=== PATIENT | male | born 1990 | race Two or more races ===

== ENCOUNTER 2016-09-22 13:58 | Emergency (ER) | payer OTHER ==
--- NOTE | 2016-09-22 14:09 | CPEKG ---
Heart Rate: 89 RR Interval: 674 P-R Interval: 160 QRSD Interval: 84 QT Interval: 360 QTC Interval: 439 P [place]: 31 QRS [place]: 11 T Wave [place]: 28 EKG Severity - NORMAL ECG - EKG Impression: SINUS RHYTHM Electronically Signed By: Isak Guzman 22-Sep-2016 15:37:55
[2016-09-22 14:44] LABS: % IMMATURE GRANULYOCYTES 0.4 % (0.0-1.1); ABSOLUTE IMMATURE GRANULOCYTES 0.03 10^3/uL (0.00-0.10); ADD DIFF? NO; ADD MORPH? NO; ADD SCAN? NO; ATYPICAL LYMPHOCYTE FLAG 10 (0-99); FRAGMENT RBC FLAG 0 (0-99); HEMATOCRIT 45.4 % (40.0-51.0); HEMOGLOBIN 15.8 g/dL (13.7-17.5); LEFT SHIFT FLG 0 (0-99); LIPEMIA HEMOLYSIS FLAG 90 (0-99); MEAN CELL HEMOGLOBIN 30.4 pg (27.9-34.1); MEAN CELL HEMOGLOBIN CONCENTR. 34.8 g/dL (32.4-36.7); MEAN CELL VOLUME 87.3 fL (81.5-99.8); MEAN PLATELET VOLUME 12.8 fL (8.7-11.7); PLATELET CLUMPS FLAG 0 (0-99); PLATELET COUNT 195 10^3/uL (150-400); RED CELL DISTRIBUTION WIDTH 12.9 % (11.5-15.2)
[2016-09-22 14:47] LABS: ANION GAP 13 mEq/L (8-16); CALCIUM 10.3 mg/dL (8.5-10.4); CARBON DIOXIDE 23 mEq/l (22-31); CHLORIDE 100 mEq/L (97-110); GLOMERULAR FILTRATION RATE > 60; GLUCOSE 139 mg/dL (70-100); POTASSIUM 3.7 mEq/L (3.5-5.2); SODIUM 136 mEq/L (134-144)
[2016-09-22 14:59] LABS: TROPONIN I < 0.012 ng/mL (0-0.034)
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
[2016-09-22 16:09] VITALS: BP 123/68; PULSE 70; RESP 14; TEMP 98.4; O2SAT 94
== END 2016-09-22 16:08 | disposition home or self-care (01) ==
DX: R00.2 Palpitations (principal)

== ENCOUNTER 2017-01-03 18:34 | Emergency (ER) | payer OTHER ==
--- NOTE | 2017-01-03 19:01 | EDPHY ---
H & P Stated Complaint: "panic attack" x 45 mins '"lasting longer than usual" HPI/ROS: HPI CHIEF COMPLAINT: Acute anxiety, panic attacks HISTORY OF PRESENT ILLNESS: This patient is a 26-year-old male, otherwise healthy significant past medical history for anxiety and panic attacks. He presents emergency room by private vehicle after he had a panic attack. States that he was lying in bed all the sudden he felt anxious. Started hyperventilate. Numbness and tingling around his mouth numbness and tingling in his hands and feet. Hyperventilation present. States that it normally lasts much shorter in this however this one lasted longer. Began having palpitations. Past Medical History: Acute anxiety panic attacks Past Surgical History: No recent surgery Social History: Denies daily use of drugs alcohol tobacco products. Works [employer]. Family History: Noncontributory ROS REVIEW OF SYSTEMS: A comprehensive 10 point review of systems is otherwise negative aside from elements mentioned in the history of present illness. Exam Constitutional appears well nontoxic, triage nursing summary reviewed, vital signs reviewed, awake/alert. Eyes normal conjunctivae and sclera, EOMI, PERRLA. HENT normal inspection, atraumatic, moist mucus membranes, no epistaxis, neck supple/ no meningismus, no raccoon eyes. Respiratory clear to auscultation bilaterally, normal breath sounds, no respiratory distress, no wheezing. Cardiovascular rate normal, regular rhythm, no murmur, no edema, distal pulses normal. Gastrointestinal soft, non-tender, no rebound, no guarding, normal bowel sounds, no distension, no pulsatile mass. Genitourinary no CVA tenderness. Musculoskeletal no midline vertebral tenderness, full range of motion, no calf swelling, no tenderness of extremities, no meningismus, good pulses, neurovascularly intact. Skin pink, warm, & dry, no rash, skin atraumatic. Neurologic awake, alert and oriented x 3, AAOx3, moves all 4 extremities equally, motor intact, sensory intact, CN II-XII intact, normal cerebellar, normal vision, normal speech. Psychiatric normal mood/affect. Heme/Lymph/Immune no lymphadenopathy. Differential Diagnosis: Includes but is not limited to in a particular order acute anxiety, panic attack, cardiac arrhythmia Medical Decision Making: Plan for this patient 1 mg p.o. Ativan, EKG. Re- evaluate. Re-evaluation: EKG interpretation by me on record in [facility] system. Impression time of EKG 1917, this is sinus rhythm rate of 74. No prolonged intervals. No signs of ischemia. No signs of cardiac arrhythmia. Unremarkable EKG. Reason for EKG palpitations. 1935: Re-examination at this time patient is resting comfortably no acute distress. States he feels much better after 1 mg p.o. Ativan. Vital signs are stable. EKG unremarkable for cardiac arrhythmia. He would like to go home. Recommend following up with his primary care doctor. Return to the ER if there is worsening symptoms questions or concerns. Source: Patient - Personal History Current Tetanus/Diphtheria Vaccine: Unsure Current Tetanus Diphtheria and Acellular Pertussis (TDAP): Unsure - Medical/Surgical History Hx Asthma: No Hx Chronic Respiratory Disease: No Hx Diabetes: No Hx Cardiac Disease: No Hx Renal Disease: No Hx Cirrhosis: No Hx Alcoholism: No Hx HIV/AIDS: No Hx Splenectomy or Spleen Trauma: No Other PMH: anxiety. cardiac stress test "normal" 11/18 [facility] - Social History Smoking Status: Never smoked Constitutional: Initial Vital Signs Temperature (C) 36.5 C 01/03/17 18:40 Heart Rate 89 01/03/17 18:40 Respiratory Rate 20 01/03/17 18:40 Blood Pressure 133/94 H 01/03/17 18:40 O2 Sat (%) 99 01/03/17 18:40 O2 Delivery Mode Room Air Allergies/Adverse Reactions: No Known Allergies Allergy (Unverified 09/22/16 14:12) Home Medications: Medication Instructions Recorded Sertraline HCl 01/03/17 Medical Decision Making - Data Points Medications Given: Discontinued Medications Lorazepam (Ativan) 1 mg PO ONCE ONE Stop: 01/03/17 19:05 Last Admin: 01/03/17 19:10 Dose: 1 mg Departure - Departure Disposition: Home, Routine, Self-Care Clinical Impression: Panic attack Condition: Good Instructions: Anxiety (ED), Panic Attack (ED) Additional Instructions: 1. Return emergency room if develops worsening symptoms. Referrals: Lana Vo RN, [employer] ENGINEER [Primary Care Provider] - As per Instructions
[2017-01-03] MEDS ORDERED: LORazepam 1 MG TAB PO ONE (19:04)
--- NOTE | 2017-01-03 19:20 | CPEKG ---
Heart Rate: 74 RR Interval: 811 P-R Interval: 164 QRSD Interval: 78 QT Interval: 380 QTC Interval: 422 P [place]: 14 QRS [place]: 3 T Wave [place]: 14 EKG Severity - NORMAL ECG - EKG Impression: SINUS RHYTHM Electronically Signed By: Ioana Carrasco 03-Jan-2017 19:45:24
[2017-01-03 19:41] VITALS: BP 125/79; PULSE 68; RESP 18; TEMP 98.1; O2SAT 93
== END 2017-01-03 19:42 | disposition home or self-care (01) ==
DX: F41.0 Panic disorder [episodic paroxysmal anxiety] (principal)

== ENCOUNTER 2017-08-27 09:26 | Emergency (ER) | payer OTHER ==
--- NOTE | 2017-08-27 09:57 | EDPHY ---
H & P Stated Complaint: upper abd pain/tenderness x 4 days Time Seen by Provider: 08/27/17 09:49 HPI/ROS: CHIEF COMPLAINT: Epigastric and right upper quadrant pain x4 days HISTORY OF PRESENT ILLNESS: 26-year-old male generally healthy in the ER complaining of 4 days of right upper quadrant and epigastric discomfort. Tends to occur regardless of what he eats whether it is low-fat or not. Does occur primarily postprandially. He went to Urgent Care was referred to the ER for evaluationThis morning. Denies: Back or flank pain, radiation of pain, nausea, vomiting, abnormal bowel movement, melena, hematochezia, fever, chills, trauma, testicular pain, urinary abnormality, cough or flu-like symptoms, dyspnea, URI symptoms. PRIMARY CARE PROVIDER: REVIEW OF SYSTEMS: A ten point review of systems was performed and is negative with the exception of the items mentioned in the HPI PAST MEDICAL & SURGICAL HISTORY: No pertinent medical or surgical history SOCIAL HISTORY: Nonsmoker. No alcohol use. Works as [employer]. PHYSICAL EXAM (Prior to examination, patient consented to physical exam, hands were washed and my usual and customary physical exam procedures followed) 1) GENERAL: Well-developed, well-nourished, alert and oriented. Appears to be in no acute distress. 2) HEAD: Normocephalic, atraumatic 3) HEENT: Pupils equal, round, reactive to light bilaterally. Sclera anicteric. [Nasopharynx, oropharynx, clear, no lesions. Moist mucous membranes 4) NECK: Full range of motion, no meningeal signs. 5) LUNGS: Clear auscultation bilaterally, no wheezes, no rhonchi, no retractions. 6) HEART: Regular rate and rhythm, no murmur, no heave, no gallop. 7) ABDOMEN: No guarding, tender to palpation epigastrium and right upper quadrant, negative McBurney's, negative Rovsing's, negative peritoneal sign, 8) MUSCULOSKELETAL: Moving all extremities, no focal areas of tenderness, no obvious trauma. No peripheral edema or discoloration. 9) BACK: No CVA tenderness, no midline vertebral tenderness, no fluctuance, no step-off, no obvious trauma, no visual or palpable abnormality. 10) SKIN: No rash, no petechiae. 11) Psychiatric: Patient is oriented X 3, there is no agitation. DIFFERENTIAL DIAGNOSIS: In no particular order, including but not limited to biliary colic, cholecystitis, peptic ulcer disease, pancreatitis, and gastroenteritis. This is a partial list of diagnoses considered. These considerations are based on history, physical exam, past history and reassessment. - Personal History Current Tetanus/Diphtheria Vaccine: No Current Tetanus Diphtheria and Acellular Pertussis (TDAP): No - Medical/Surgical History Hx Asthma: No Hx Chronic Respiratory Disease: No Hx Diabetes: No Hx Cardiac Disease: No Hx Renal Disease: No Hx Cirrhosis: No Hx Alcoholism: No Hx HIV/AIDS: No Hx Splenectomy or Spleen Trauma: No Other PMH: anxiety. cardiac stress test "normal" 11/18 [facility] inguinal hernia repair as - Social History Smoking Status: Never smoked Constitutional: Initial Vital Signs Temperature (C) 36.7 C 08/27/17 09:28 Heart Rate 79 08/27/17 09:28 Respiratory Rate 16 08/27/17 09:28 Blood Pressure 120/75 08/27/17 09:28 O2 Sat (%) 98 08/27/17 09:28 O2 Delivery Mode Room Air Allergies/Adverse Reactions: No Known Allergies Allergy (Unverified 09/22/16 14:12) Home Medications: Medication Instructions Recorded Sertraline HCl 01/03/17 Pantoprazole Sodium [Protonix 40mg 40 mg PO DAILY #30 tab 08/27/17 (RX)] Medical Decision Making - Diagnostics Imaging Results: Imaging Impressions Abdomen Ultrasound 08/27/17 09:55 Impression: 1. Normal gallbladder. No cholelithiasis, biliary dilation, hydronephrosis or free fluid. 2. Pancreas is not optimally visualized due to bowel gas. Findings discussed with Emergency Department physician social service assistant, Sravan Nava PA-C on August 27, 2017 at 1044 hours. Images reviewed myself ED Course/Re-evaluation: Care of patient under supervision of secondary supervising physician Dr Carrasco . 11:20 a.m.: Re-evaluation, discussed his normal ultrasound normal laboratory studies including normal lipase. Doubt acute pancreatitis, doubt acute cholecystitis. Doubt cardiac or pulmonary etiology such as lower lobe pneumonia or pulmonary embolus. We discussed possibility of gastritis. Plan will be discharge, starting proton pump inhibitor, follow up with Gastroenterology. Recommend bland diet, low-fat diet. Do not think that hospitalization or emergent GI consultation is indicated. He feels comfortable being discharged.. Usual and customary discharge precautions instructions provided. - Data Points Laboratory Results: Laboratory Results 08/27/17 10:00 08/27/17 10:00 08/27/17 08/27/17 10:00 10:00 WBC 8.95 10^3/uL 10^3/uL (3.80-9.50) RBC 5.14 10^6/uL 10^6/uL (4.40-6.38) Hgb 15.7 g/dL g/dL (13.7-17.5) Hct 45.0 % % (40.0-51.0) MCV 87.5 fL fL (81.5-99.8) MCH 30.5 pg pg (27.9-34.1) MCHC 34.9 g/dL g/dL (32.4-36.7) RDW 13.4 % % (11.5-15.2) Plt Count 184 10^3/uL 10^3/uL (150-400) MPV 12.2 fL H fL (8.7-11.7) Neut % (Auto) 60.8 % % (39.3-74.2) Lymph % (Auto) 28.4 % % (15.0-45.0) [place] % (Auto) 8.4 % % (4.5-13.0) Eos % (Auto) 1.8 % % (0.6-7.6) Baso % (Auto) 0.4 % % (0.3-1.7) Nucleat RBC Rel Count 0.0 % % (0.0-0.2) Absolute Neuts (auto) 5.44 10^3/uL 10^3/uL (1.70-6.50) Absolute Lymphs (auto) 2.54 10^3/uL 10^3/uL (1.00-3.00) Absolute Monos (auto) 0.75 10^3/uL 10^3/uL (0.30-0.80) Absolute Eos (auto) 0.16 10^3/uL 10^3/uL (0.03-0.40) Absolute Basos (auto) 0.04 10^3/uL 10^3/uL (0.02-0.10) Absolute Nucleated RBC 0.00 10^3/uL 10^3/uL (0-0.01) Immature Gran % 0.2 % % (0.0-1.1) Immature Gran # 0.02 10^3/uL 10^3/uL (0.00-0.10) Sodium 145 mEq/L mEq/L (135-145) Potassium 3.9 mEq/L mEq/L (3.3-5.0) Chloride 107 mEq/L mEq/L (97-110) Carbon Dioxide 27 mEq/l mEq/l (22-31) Anion Gap 11 mEq/L mEq/L (8-16) BUN 13 mg/dL mg/dL (7-23) Creatinine 0.9 mg/dL mg/dL (0.7-1.3) Estimated GFR > 60 Glucose 97 mg/dL mg/dL (70-100) Calcium 9.3 mg/dL mg/dL (8.5-10.4) Total Bilirubin 0.6 mg/dL mg/dL (0.1-1.4) Conjugated Bilirubin 0.2 mg/dL mg/dL (0.0-0.5) Unconjugated Bilirubin 0.4 mg/dL mg/dL (0.0-1.1) AST 20 IU/L IU/L (17-59) ALT 35 IU/L IU/L (21-72) Alkaline Phosphatase 59 IU/L IU/L (38-126) Total Protein 7.0 g/dL g/dL (6.3-8.2) Albumin 4.1 g/dL g/dL (3.5-5.0) Lipase 195 IU/L IU/L (23-300) Departure - Departure Disposition: Home, Routine, Self-Care Clinical Impression: Epigastric pain Condition: Good Instructions: Epigastric Pain (ED) Additional Instructions: Seek immediate medical attention if you develop new or worsening symptoms, if you develop fevers, chills, inability to tolerate oral intake or any other symptoms that concerns you. Referrals: Adela Martínez MD [Medical Doctor] - 5-7 days, call for appt. Prescriptions: Pantoprazole Sodium [Protonix 40mg (RX)] 40 mg PO DAILY #30 tab
[2017-08-27 10:10] LABS: PLATELET COUNT 184 10^3/uL (150-400)
[2017-08-27 11:49] VITALS: BP 121/66
== END 2017-08-27 11:49 | disposition home or self-care (01) ==
DX: R10.13 Epigastric pain (principal)